=== PATIENT | male | born 1990 | race Caucasian/White ===

== ENCOUNTER 2017-09-25 08:55 | Emergency (ER) | payer OTHER ==
[2017-09-25] MEDS ORDERED: Sodium Chloride 0.9% 1,000 ML IV SCH (10:30)
[2017-09-25] MEDS ORDERED: Iopamidol 612 MG/ML 150 ML Bottle IVPUSH ONE (10:31)
[2017-09-25] MEDS ORDERED: Sodium Chloride 0.9% 10 ML Syringe FLUSH ONE (10:31)
--- NOTE | 2017-09-25 10:36 | CR ---
Chest: Portable view of the chest was obtained. Comparison: No prior chest x-ray. Heart size and mediastinum are normal. Lungs are clear. Minimal scoliosis is noted within the spine. Impression: 1. Nothing acute is identified on portable chest x-ray. Diagnostic code #1
--- NOTE | 2017-09-25 11:26 | CT ---
CT chest Technique: Multiple axial sections from above the dome of the diaphragm were obtained inferiorly through the pubic symphysis. Intravenous contrast was utilized. No oral contrast was given which diminishes evaluation of bowel and processes around the bowel. Delayed images also obtained through the abdomen and pelvis. Findings: Large cystic lesion is identified within the spleen. This measures about 15.5 cm in size. Slight calcification is seen within the wall of this cyst. Visualized lung bases are clear. Liver shows no focal parenchymal abnormality. Gallbladder contains no calcified gallstones. Pancreas is within normal limits. Kidneys show symmetric contrast enhancement without hydronephrosis or mass. Delayed images show contrast throughout both ureters as well as within the bladder. Adrenal glands show no nodule. Aorta shows no aneurysmal dilatation. No retroperitoneal adenopathy or mesenteric abnormalities are seen. No pelvic mass or adenopathy is seen. No free fluid or inflammatory change is seen within the abdomen or pelvis. Bone window settings were reviewed which appear within normal limits for the patient's age. Impression: 1. Large 15.5 cm cyst within the spleen with mild calcified wall. Differential includes a congenital epidermal cyst as well as cyst from previous splenic hematoma or infarction. Splenic abscess is within the differential but this should be obvious by clinical symptoms. Hydatid cyst is also within the differential. 2. No additional abnormality is appreciated on CT study of the abdomen and pelvis. Diagnostic code #3
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
== END 2017-09-25 13:25 | disposition home or self-care (01) ==
LOC: JD.ED 08:55
DX: D73.4 Cyst of spleen (principal)
CPT/HCPCS: 36415; 71045; 74177; 80053; 85025; 86140; 93005; 96360; 96361; 99285; J7040; J7050; Q9967; 99284